=== PATIENT | male | born 1990 | race Caucasian/White ===

== ENCOUNTER → 2017-01-05 | Outpatient (CLI) | payer BC | END | disposition home or self-care (01) | LOC: MMGSC 16:41 | PROVIDERS: ATTEND Family Medicine | DX: B37.9 Candidiasis, unspecified (principal) | CPT/HCPCS: 87070; 87205 ==

== ENCOUNTER 2019-11-05 13:21 | Emergency (ER) | payer BC, OTHER ==
[2019-11-05 13:47] VITALS: BP 127/84; PULSE 79; RESP 20; TEMP 98.3
--- NOTE | 2019-11-05 14:22 | ED ---
URI HPI - General Chief Complaint: Upper Respiratory Infection Stated Complaint: Cough/congestion Time Seen by Provider: 11/05/19 13:35 Source: patient, RN notes reviewed, old records reviewed Mode of arrival: ambulatory Limitations: no limitations - History of Present Illness Initial Comments: Patient is a 29 year old male with cough, congestion, and shortness of breath. Patient has had progressvie symptoms for 3 weeks. Denies fevers at this time. Denies chest pain. Patient is a occasional smoker. PAtient has no abdominal pain, nausea or vomiting. - Related Data Home Medications Medication Instructions Recorded Confirmed Escitalopram [Lexapro] 10 mg PO DAILY 01/29/16 03/01/16 Esomeprazole Magnesium [NexIUM 22.3 mg PO AC-TID 01/29/16 03/01/16 24Hr] clonazePAM [KlonoPIN] 0.5 mg PO BID PRN 01/29/16 03/01/16 Previous Rx's Medication Instructions Recorded Albuterol Inhaler [Ventolin Hfa 1 - 2 puff INHALATION RT-Q6H PRN 11/05/19 Inhaler] #1 inhaler Azithromycin [Zithromax Z-pack] 250 mg PO DIRECTED #6 tab 11/05/19 predniSONE 10 mg PO DAILY #15 tab 11/05/19 Allergies Allergy/AdvReac Type Severity Reaction Status Date / Time Sulfa (Sulfonamide Allergy Swelling Verified 03/01/16 01:42 Antibiotics) Review of Systems ROS Statement: Those systems with pertinent positive or pertinent negative responses have been documented in the HPI. ROS Other: All systems not noted in ROS Statement are negative. Past Medical History Past Medical History: Asthma, Hypertension Additional Past Medical History / Comment(s): palpitations History of Any Multi-Drug Resistant Organisms: None Reported Past Surgical History: No Surgical Hx Reported Past Psychological History: Anxiety, Depression Smoking Status: Current every day smoker Past Alcohol Use History: Rare Past Drug Use History: None Reported General Exam - General Exam Comments Initial Comments: 29 year old male, no distress. Limitations: no limitations Head exam: Present: atraumatic, normocephalic, normal inspection Eye exam: Present: normal appearance, PERRL, EOMI. Absent: scleral icterus, conjunctival injection, periorbital swelling ENT exam: Present: normal exam, mucous membranes moist Neck exam: Present: normal inspection. Absent: tenderness, meningismus, lymphadenopathy Respiratory exam: Present: normal lung sounds bilaterally. Absent: respiratory distress, wheezes, rales, rhonchi, stridor Extremities exam: Present: normal inspection, full ROM, normal capillary refill. Absent: tenderness, pedal edema, joint swelling, calf tenderness Back exam: Present: normal inspection Neurological exam: Present: alert, oriented X3, CN II-XII intact Psychiatric exam: Present: normal affect, normal mood Skin exam: Present: warm, dry, intact, normal color. Absent: rash Course Vital Signs 11/05/19 11/05/19 13:44 14:30 Temperature 98.3 F 98.3 F Pulse Rate 79 79 Respiratory 20 20 Rate Blood Pressure 127/84 127/84 O2 Sat by Pulse 98 98 Oximetry Medical Decision Making - Medical Decision Making 29 year old male with cough and congestion for 3 weeks. Patient has normal lung sounds, normal oropharynx. Pd alvino mancilla has bronchitis. Dscussed treatment with steroids and azithromycin for atypical pneumona. He states he has been exposed to pneumonia with his mother being sick. Discussed close PCP follow up and return parameters discussed. Disposition Clinical Impression: Bronchitis Disposition: HOME SELF-CARE Condition: Good Instructions (If sedation given, give patient instructions): Upper Respiratory Infection (ED) Additional Instructions: Please use medication as discussed. Please follow up with family doctor if symptoms have not improved over the next two days. Please return to the emergency room if your symptoms increase or worsen or for any other concerns. Prescriptions: predniSONE 10 mg PO DAILY #15 tab Albuterol Inhaler [Ventolin Hfa Inhaler] 1 - 2 puff INHALATION RT-Q6H PRN #1 inhaler PRN Reason: Cough Azithromycin [Zithromax Z-pack] 250 mg PO DIRECTED #6 tab Is patient prescribed a controlled substance at d/c from ED?: No Referrals: Zunilda Durham MD [Primary Care Provider] - 1-2 days Time of Disposition: 14:21
== END 2019-11-05 14:30 | disposition home or self-care (01) ==
LOC: EC 13:21
DX: J40 Bronchitis, not specified as acute or chronic (principal); Z22.8 Carrier of other infectious diseases; F32.9 Major depressive disorder, single episode, unspecified; F41.9 Anxiety disorder, unspecified; F17.200 Nicotine dependence, unspecified, uncomplicated; Z88.2 Allergy status to sulfonamides; Z79.899 Other long term (current) drug therapy
CPT/HCPCS: 99285

== ENCOUNTER 2020-10-12 12:03 | Emergency (ER) | payer BC, OTHER ==
[2020-10-12 12:10] VITALS: TEMP 98.7
[2020-10-12 12:57] VITALS: RESP 16
--- NOTE | 2020-10-12 13:17 | XR ---
EXAMINATION TYPE: XR chest 2V DATE OF EXAM: 10/12/2020 COMPARISON: 02/08/2016 INDICATION: Cough chest tightness TECHNIQUE: Frontal and lateral views of the chest are obtained. FINDINGS: The heart size is normal. The pulmonary vasculature is normal. The lungs are clear. IMPRESSION: 1. No acute pulmonary process.
--- NOTE | 2020-10-12 13:37 | ED ---
General Adult HPI - General Chief complaint: Upper Respiratory Infection Stated complaint: Coughing,KYLER Time Seen by Provider: 10/12/20 12:27 Source: patient, RN notes reviewed Mode of arrival: ambulatory Limitations: no limitations - History of Present Illness Initial comments: 30-year-old male presents emergency Department chief complaint of cough mehran estion. Patient states started a few days ago with nasal congestion, sore throat. Patient states he has chest congestion. Patient denies any significant fevers chills slight bodyaches no sick contacts. Patient states he has a history of asthma but has not uses inhalers several years. Patient denies any [id number] medications. Denies any abdominal or GI issues. - Related Data Home Medications Medication Instructions Recorded Confirmed Escitalopram [Lexapro] 10 mg PO DAILY 01/29/16 03/01/16 Esomeprazole Magnesium [NexIUM 22.3 mg PO AC-TID 01/29/16 03/01/16 24Hr] clonazePAM [KlonoPIN] 0.5 mg PO BID PRN 01/29/16 03/01/16 Previous Rx's Medication Instructions Recorded Albuterol Inhaler (Mhu) [Ventolin 1 - 2 puff INHALATION RT-Q6H PRN 11/05/19 Hfa Inhaler (Mhu)] #1 inhaler Azithromycin [Zithromax Z-pack (6 250 mg PO DIRECTED #6 tab 11/05/19 tabs)] predniSONE 10 mg PO DAILY #15 tab 11/05/19 Allergies Allergy/AdvReac Type Severity Reaction Status Date / Time Sulfa (Sulfonamide Allergy Swelling Verified 10/12/20 12:10 Antibiotics) Review of Systems ROS Statement: Those systems with pertinent positive or pertinent negative responses have been documented in the HPI. ROS Other: All systems not noted in ROS Statement are negative. Past Medical History Past Medical History: Asthma, Hypertension Additional Past Medical History / Comment(s): palpitations History of Any Multi-Drug Resistant Organisms: None Reported Past Surgical History: No Surgical Hx Reported Past Psychological History: Anxiety, Depression Smoking Status: Current every day smoker Past Alcohol Use History: Rare Past Drug Use History: None Reported General Exam Limitations: no limitations General appearance: alert, in no apparent distress Head exam: Present: atraumatic, normocephalic, normal inspection Eye exam: Present: normal appearance, PERRL, EOMI. Absent: scleral icterus, conjunctival injection, periorbital swelling ENT exam: Present: normal exam, normal oropharynx, mucous membranes moist Neck exam: Present: normal inspection, full ROM. Absent: tenderness, meningismus, lymphadenopathy Respiratory exam: Present: normal lung sounds bilaterally. Absent: respiratory distress, wheezes, rales, rhonchi, stridor Cardiovascular Exam: Present: regular rate, normal rhythm, normal heart sounds. Absent: systolic murmur, diastolic murmur, rubs, gallop, clicks GI/Abdominal exam: Present: soft, normal bowel sounds. Absent: distended, tenderness, guarding, rebound, rigid Neurological exam: Present: alert, oriented X3 Skin exam: Present: warm, dry, intact, normal color. Absent: rash Course Vital Signs 10/12/20 10/12/20 12:08 12:56 Temperature 98.7 F Pulse Rate 103 H Respiratory 18 16 Rate Blood Pressure 146/88 O2 Sat by Pulse 99 Oximetry Medical Decision Making - Medical Decision Making 22-year-old male presents emergency from for cough congestion. X-rays unremarkable, covid is negative. Patient has a viral URI. Patient we discharged in stable condition vitals reviewed and are within normal limits. - Lab Data Lab Results 10/12/20 Range/Units 12:52 Coronavirus (PCR) Not Detected (Not Detectd) Disposition Clinical Impression: Acute upper respiratory infection Disposition: HOME SELF-CARE Condition: Stable Instructions (If sedation given, give patient instructions): Upper Respiratory Infection (ED) Additional Instructions: Please return to the Emergency Department if symptoms worsen or any other concerns. Is patient prescribed a controlled substance at d/c from ED?: No Referrals: Zunilda Durham MD [Primary Care Provider] - 1-2 days Time of Disposition: 14:22
[2020-10-12 14:57] VITALS: BP 142/89; PULSE 82
== END 2020-10-12 14:56 | disposition home or self-care (01) ==
LOC: EC 12:03
DX: J06.9 Acute upper respiratory infection, unspecified (principal); Z20.828 Contact with and (suspected) exposure to other viral communicable diseases; F17.200 Nicotine dependence, unspecified, uncomplicated; J45.909 Unspecified asthma, uncomplicated; I10 Essential (primary) hypertension; F41.9 Anxiety disorder, unspecified; F32.9 Major depressive disorder, single episode, unspecified; Z79.51 Long term (current) use of inhaled steroids; Z79.899 Other long term (current) drug therapy; Z88.2 Allergy status to sulfonamides
CPT/HCPCS: 87635; 71046; 99285; U0003

== ENCOUNTER 2021-08-24 12:05 | Emergency (ER) | payer BC ==
[2021-08-24] MEDS ORDERED: KETOROLAC 15 MG/ML 1 ML VIAL IVP STA (12:23)
[2021-08-24] MEDS ORDERED: SODIUM CHLORIDE 0.9% 1,000 ML IV STA (12:23)
[2021-08-24] MEDS ORDERED: ACETAMINOPHEN TAB 500 MG TAB PO STA (12:23)
--- NOTE | 2021-08-24 12:26 | ED ---
General Adult HPI - General Chief complaint: Shortness of Breath Stated complaint: Cough/fever/vomiting/conor Time Seen by Provider: 08/24/21 12:10 Source: patient, RN notes reviewed Mode of arrival: ambulatory Limitations: no limitations - History of Present Illness Initial comments: Patient is 31-year-old male presented to ER for shortness of breath. Patient states that starting started feeling under the weather with cough and congestion. Patient reports increase in symptoms with fever, nausea, vomiting, loss of appetite. Patient reports generalized fatigue and weakness with no changes in bowel movements or urination. Patient does state known sick contacts at work with Covid. Patient does report having received COVID-19 vaccine. Spencer mancilla does report history of asthma but denies any smoking. - Related Data Home Medications Medication Instructions Recorded Confirmed Dm/Acetaminophen/Doxylamine [Vicks 30 ml PO Q6H PRN 08/24/21 08/24/21 Nyquil Cold-Flu Liquid] Previous Rx's Medication Instructions Recorded Azithromycin [Zithromax Z-pack (6 0 mg PO DIRECTED #1 packet 08/24/21 tabs)] Allergies Allergy/AdvReac Type Severity Reaction Status Date / Time Sulfa (Sulfonamide Allergy Swelling Verified 08/24/21 13:38 Antibiotics) Review of Systems ROS Statement: Those systems with pertinent positive or pertinent negative responses have been documented in the HPI. ROS Other: All systems not noted in ROS Statement are negative. Past Medical History Past Medical History: Asthma, Hypertension Additional Past Medical History / Comment(s): palpitations History of Any Multi-Drug Resistant Organisms: None Reported Past Surgical History: No Surgical Hx Reported Past Psychological History: Anxiety, Depression Smoking Status: Current every day smoker Past Alcohol Use History: Rare Past Drug Use History: None Reported General Exam Limitations: no limitations General appearance: alert, in no apparent distress Respiratory exam: Present: normal lung sounds bilaterally. Absent: respiratory distress, wheezes, rales, rhonchi, stridor Cardiovascular Exam: Present: normal rhythm, tachycardia (fever), normal heart sounds. Absent: systolic murmur, diastolic murmur, rubs, gallop, clicks GI/Abdominal exam: Present: soft, normal bowel sounds. Absent: distended, tenderness, guarding, rebound, rigid Neurological exam: Present: alert, oriented X3 Skin exam: Present: warm, dry, intact, normal color. Absent: rash Course Vital Signs 08/24/21 08/24/21 08/24/21 12:06 13:04 13:31 Temperature 100.8 F H 99.2 F Pulse Rate 143 H 115 H Respiratory 18 18 18 Rate Blood Pressure 142/90 145/97 O2 Sat by Pulse 97 98 Oximetry Medical Decision Making - Medical Decision Making X-ray does not show definite pneumonia, COVID-19 is negative patient's heart rate was elevated initially feel improved after IV fluids, Tylenol. His most likely related to fever. He has no further chest pain no shortness of breath no exertional dyspnea. Patient feels comfortable discharged return parameters were discussed. - Lab Data Lab Results 08/24/21 Range/Units 12:51 Coronavirus (PCR) Not Detected (Not Detectd) Disposition Clinical Impression: Fever, Upper respiratory infection Disposition: HOME SELF-CARE Condition: Stable Instructions (If sedation given, give patient instructions): Acute Bronchitis (ED) Additional Instructions: Please return to the Emergency Department if symptoms worsen or any other concerns. Prescriptions: Azithromycin [Zithromax Z-pack (6 tabs)] 0 mg PO DIRECTED #1 packet Is patient prescribed a controlled substance at d/c from ED?: No Referrals: None,Stated [Primary Care Provider] - 1-2 days Time of Disposition: 13:44
--- NOTE | 2021-08-24 12:42 | XR ---
EXAMINATION TYPE: XR chest 2V DATE OF EXAM: 08/24/2021 COMPARISON: 10/12/2020 HISTORY: Chest pain TECHNIQUE: Frontal and lateral views of the chest are obtained. FINDINGS: There is no focal air space opacity. No evidence for pneumothorax. No pleural effusion. The cardiac silhouette size is within normal limits. The osseous structures are grossly intact. IMPRESSION: 1. No acute cardiopulmonary process.
[2021-08-24] MEDS ORDERED: cefTRIAXone IN SWFI 1,000 MG/10 ML SYRINGE IVP STA (13:42)
[2021-08-24 14:15] VITALS: BP 145/88; PULSE 100; RESP 19; TEMP 99
== END 2021-08-24 14:15 | disposition home or self-care (01) ==
LOC: EC 12:05
DX: J06.9 Acute upper respiratory infection, unspecified (principal); Z20.822 Contact with and (suspected) exposure to COVID-19; I10 Essential (primary) hypertension; J45.909 Unspecified asthma, uncomplicated; F17.200 Nicotine dependence, unspecified, uncomplicated; Z88.2 Allergy status to sulfonamides
CPT/HCPCS: 99285 ×2; 96374 ×2; 96375 ×2; 96361 ×2; 93005; 87635; 71046; J0696; J1885

== ENCOUNTER 2021-08-28 08:20 | Emergency (ER) | payer BC ==
[2021-08-28 08:25] VITALS: BP 138/95; PULSE 115; RESP 18; TEMP 98.9
--- NOTE | 2021-08-28 08:51 | XR ---
EXAMINATION TYPE: XR chest 2V DATE OF EXAM: 08/28/2021 COMPARISON: Chest x-ray 4 days ago. HISTORY: Cough and shortness of breath. TECHNIQUE: Frontal and lateral views of the chest are obtained. FINDINGS: Low lung volumes are redemonstrated. There is no no suspicious focal air space opacity, ple ural effusion, or pneumothorax seen. The cardiac silhouette size is stable and within normal limits. The osseous structures are intact. IMPRESSION: No acute cardiopulmonary process. No significant change from recent prior.
--- NOTE | 2021-08-28 09:02 | ED ---
URI HPI - General Source: patient, RN notes reviewed Mode of arrival: ambulatory Limitations: no limitations <Maximino Martin - Last Filed: 08/28/21 08:54> <Cee Morse - Last Filed: 09/09/21 00:54> - General Chief Complaint: Upper Respiratory Infection Stated Complaint: Cough/KYLER Time Seen by Provider: 08/28/21 08:27 - History of Present Illness Initial Comments: Patient is a 31-year-old male that presents to emergency department complaining of upper respiratory tract symptoms including cough and congestion and fever. Notes he was seen Wednesday got a negative Covid swab was sent home with a Z-James. Patient notes a Z-James is not helping the patient was also informed that he most likely has a viral upper respiratory tract infection Z-James was most likely prophylactic for possible pneumonia. Patient notes that he still taking antipyretics such as Tylenol Motrin for fever. Patient notes that he wants a wo rk note for today. He denied any other issues or complaints. He denied chest pain shortness of breath headache nausea vomiting diarrhea constipation fever fatigue chills. (Maximino Martin) - Related Data Home Medications Medication Instructions Recorded Confirmed Dm/Acetaminophen/Doxylamine [Vicks 30 ml PO Q6H PRN 08/24/21 08/24/21 Nyquil Cold-Flu Liquid] Previous Rx's Medication Instructions Recorded Azithromycin [Zithromax Z-pack (6 0 mg PO DIRECTED #1 packet 08/24/21 tabs)] Allergies Allergy/AdvReac Type Severity Reaction Status Date / Time Sulfa (Sulfonamide Allergy Swelling Verified 08/28/21 08:21 Antibiotics) Review of Systems ROS Other: All systems not noted in ROS Statement are negative. <Maximino Martin - Last Filed: 08/28/21 08:54> ROS Other: All systems not noted in ROS Statement are negative. <Cee Morse - Last Filed: 09/09/21 00:54> ROS Statement: Those systems with pertinent positive or pertinent negative responses have been documented in the HPI. Past Medical History Past Medical History: Asthma, Hypertension Additional Past Medical History / Comment(s): palpitations History of Any Multi-Drug Resistant Organisms: None Reported Past Surgical History: No Surgical Hx Reported Past Psychological History: Anxiety, Depression Smoking Status: Former smoker Past Alcohol Use History: Rare Past Drug Use History: None Reported <Maximino Martin - Last Filed: 08/28/21 08:54> General Exam Limitations: no limitations General appearance: alert, in no apparent distress Head exam: Present: atraumatic, normocephalic, normal inspection Eye exam: Present: normal appearance, PERRL, EOMI. Absent: scleral icterus, conjunctival injection, periorbital swelling ENT exam: Present: normal exam, mucous membranes moist Neck exam: Present: normal inspection Respiratory exam: Present: normal lung sounds bilaterally. Absent: respiratory distress, wheezes, rales, rhonchi, stridor Cardiovascular Exam: Present: regular rate, normal rhythm, normal heart sounds. Absent: systolic murmur, diastolic murmur, rubs, gallop, clicks GI/Abdominal exam: Present: soft, normal bowel sounds. Absent: distended, tenderness, guarding, rebound, rigid Extremities exam: Present: normal inspection, full ROM, normal capillary refill. Absent: tenderness, pedal edema, joint swelling, calf tenderness Neurological exam: Present: alert, oriented X3 Psychiatric exam: Present: normal affect, normal mood Skin exam: Present: warm, dry, intact, normal color. Absent: rash <Maximino Martin - Last Filed: 08/28/21 08:54> Course Vital Signs 08/28/21 08:21 Temperature 98.9 F Pulse Rate 115 H Respiratory 18 Rate Blood Pressure 138/95 O2 Sat by Pulse 98 Oximetry Medical Decision Making - Radiology Data Radiology results: report reviewed, image reviewed <Maximino Martin - Last Filed: 08/28/21 08:54> <Cee Morse - Last Filed: 09/09/21 00:54> - Medical Decision Making 31-year-old male with upper respiratory tract infection, negative Covid test on Wednesday. Chest x-ray ordered. Chest x-ray shows no acute cardiopulmonary process. No change from previous studies. Patient was given work no. Case discussed with Dr. Morse, patient discharge home. (Maximino Martin) I was available for consultation in the emergency department. The history and physical exam were done by the midlevel provider. I was consulted for this patients care. I reviewed the case with the midlevel provider and based on their presentation of the patient, I agree with the assessment, medical decision making and plan of care as documented. Chart was dictated using [employer] dictation software. Attempts were made to correct any dictation errors however some typographical errors may persist. (Cee Morse) - Radiology Data Chest x-ray: No acute cardiopulmonary process. No change from previous study. (Maximino Martin) Disposition Is patient prescribed a controlled substance at d/c from ED?: No Time of Disposition: 09:02 <Maximino Martin - Last Filed: 08/28/21 08:54> <Cee Morse - Last Filed: 09/09/21 00:54> Clinical Impression: Upper respiratory infection Disposition: HOME SELF-CARE Condition: Stable Instructions (If sedation given, give patient instructions): Upper Respiratory Infection (ED) Additional Instructions: Please return to the Emergency Department if symptoms worsen or any other concerns. Referrals: None,Stated [Primary Care Provider] - 1-2 days
== END 2021-08-28 09:11 | disposition home or self-care (01) ==
LOC: EC 08:20
DX: J06.9 Acute upper respiratory infection, unspecified (principal); J45.909 Unspecified asthma, uncomplicated; I10 Essential (primary) hypertension; F41.9 Anxiety disorder, unspecified; F32.9 Major depressive disorder, single episode, unspecified; Z88.2 Allergy status to sulfonamides; Z87.891 Personal history of nicotine dependence
CPT/HCPCS: 71046; 99283

== ENCOUNTER → 2023-12-29 | Outpatient (CLI) | payer BC ==
[2023-12-30 03:02] LABS: Basophils # (A) 0.03 X 10*3/uL (0.00-0.10); Basophils % (A) 0.3 %; Eosinophils # (A) 0 X 10*3/uL (0.04-0.35); Eosinophils % (A) 0 %; HCT 47.5 % (39.6-50.0); HGB 15.8 g/dL (13.0-17.0); Lymphocytes # (A) 1.89 X 10*3/uL (0.90-5.00); Lymphocytes % (A) 17.2 %; MCH 28.9 pg (27.0-32.0); MCHC 33.3 g/dL (32.0-37.0); Monocytes # (A) 0.57 X 10*3/uL (0.20-1.00); Monocytes % (A) 5.2 %; NRBC Per 100 WBC 0 X 10*3/uL (0.00-0.01); Neutrophils # (A) 8.41 X 10*3/uL (1.80-7.70); Neutrophils % (A) 76.7 %; Platelet Count 380 X 10*3/uL (140-440); RBC 5.46 X 10*6/uL (4.40-5.60); WBC 10.97 X 10*3/uL (4.50-10.00)
[2023-12-30 03:24] LABS: ALT 41 U/L (10-49); AST 26 U/L (14-35); Albumin 4.7 g/dL (3.8-4.9); Albumin/Globulin Ratio 1.47 Ratio (1.60-3.17); Alkaline Phosphatase 49 U/L (41-126); Amylase 48 U/L (23-121); BUN/Creat Ratio 13.44 Ratio (12.00-20.00); Blood Urea Nitrogen 12.1 mg/dL (9.0-27.0); C Reactive Protein <0.30 mg/dL (0.00-0.80); Calcium 9.7 mg/dL (8.7-10.3); Carbon Dioxide 23.3 mmol/L (21.6-31.8); Chloride 100 mmol/L (96-109); Chol/HDL Ratio 2.66 Ratio; Globulin 3.2 g/dL (1.6-3.3); Glucose 96 mg/dL (70-110); Lipase 32 U/L (14-60); Potassium 4.3 mmol/L (3.5-5.5); Sodium 138 mmol/L (135-145); Total Bilirubin 0.7 mg/dL (0.3-1.2); Total Protein 7.9 g/dL (6.2-8.2); VLDL Calculation 17.36 mg/dL (5.00-40.00)
== END | disposition home or self-care (01) ==
LOC: LABWHC1 15:50
PROVIDERS: ATTEND Family Medicine
DX: Z00.00 Encounter for general adult medical examination without abnormal findings (principal); Z11.59 Encounter for screening for other viral diseases; K52.9 Noninfective gastroenteritis and colitis, unspecified
CPT/HCPCS: 36415; 80053; 80061; 82150; 82306; 83690; 84439; 84443; 85025; 86140; 86803

== ENCOUNTER 2024-05-30 07:04 | Day surgery (SDC) | payer BC ==
[2024-05-30] MEDS: IV FLUID CONTINUATION 1,000 ML IV ONE (07:18)
[2024-05-30 07:24] VITALS: TEMP 97
[2024-05-30] MEDS: LACTATED RINGERS 1,000 ML IV SCH (07:26)
[2024-05-30] MEDS ORDERED: PROPOFOL 10 MG/ML 20 ML VIAL IV ONE (08:23)
--- NOTE | 2024-05-30 08:40 | P.PCN ---
Date of Procedure: 05/30/24 Procedure(s) Performed: BRIEF HISTORY: Patient is a 34-year-old pleasant white male scheduled for an elective colonoscopy as a part of evaluation of intermittent rectal bleeding and periumbilical abdominal pain for the last 6 months duration. PROCEDURE PERFORMED: Colonoscopy. PREOPERATIVE DIAGNOSIS: Abdominal pain and intermittent rectal bleeding. IV sedation per Anesthesia. PROCEDURE: After informed consent was obtained, the patient, was brought into the endoscopy unit. IV sedation was administered by Anesthesia under continuous monitoring. Digital rectal examination was normal. Initially the Olympus CF-160 flexible video colonoscope was then inserted in the rectum, gradually advanced into the cecum without any difficulty. Careful examination was performed as the scope was gradually being withdrawn. Ileocecal valve and the appendiceal orifice were visualized and appeared normal. Prep was excellent. Mucosa of the cecum, ascending colon, transverse colon, descending colon, sigmoid colon, and rectum appeared normal. Retroflexion was performed in the rectum and no lesions were seen. The patient tolerated the procedure well. IMPRESSION: Normal-appearing colon from rectum to cecum with no evidence of colitis or colorectal neoplasia. RECOMMENDATIONS: Findings of this examination were discussed with the patient as well as his family. He was advised to continue with MiraLAX 1 scoop 3 times daily, high-fiber diet and fiber supplements on a regular basis. Recommended repeat screening colonoscopy at age 47.
[2024-05-30 09:13] VITALS: RESP 18
[2024-05-30 09:15] VITALS: BP 110/70; PULSE 69
== END 2024-05-30 09:35 | disposition home or self-care (01) ==
LOC: ORWHC2ENDO 07:04
PROVIDERS: ATTEND Internal Medicine Gastroenterology
DX: K62.5 Hemorrhage of anus and rectum (principal); I10 Essential (primary) hypertension; F17.210 Nicotine dependence, cigarettes, uncomplicated; J45.909 Unspecified asthma, uncomplicated; Z88.2 Allergy status to sulfonamides
CPT/HCPCS: 45378; J2704